=== PATIENT | female | born 1995 | race African-American/Black ===

== ENCOUNTER 2023-07-31 08:51 | Outpatient (AMB) | payer OTHER, SELFPAY ==
[2023-07-31 08:58] VITALS: BP 118/74; PULSE 77; O2SAT 100; BMI 24.1
--- NOTE | 2023-07-31 08:58 | A.OFFPC_ITS ---
Vital Signs 07/31/23 08:58 Height 5 ft 4.17 in Weight 141 lb 0.3 oz BMI 24.1 BP 118/74 Blood Pressure Location Lt brachial Position Sitting Pulse 77 Pulse Source Pulse Oximeter Temp Source Skin Pulse Oximetry (%) 100 Oxygen Delivery Method Room Air Intake Visit Reasons: [facility] Home Inspector Required: No Allergies No Known Allergies Allergy (Verified 07/31/23 09:18) Medication List - Last Reconciled 07/31/23 by MAURO Conti No Known Home Meds Tobacco use date assessed: 07/31/23 HPI HPI Comments History of Present Illness Details 28-year-old female presents today to [facility]. Past medical history significant for migraines.Patient presents today with her godmother who aids in interpretation, patient speaks Creole. Patient reports occasionally her right breast will get swollen and get a lump. Breast exam completed during this appointment no noted breast masses, tenderness. Patient denies any nipple discharge. Patient requesting referral to establish care with OBGYN, referral entered. Patient denies any chest pain, palpitations, shortness of breath. Patient reports did have syncopal episode in April seen at [facility]. Will request records. [facility] Medical History (Updated 07/31/23 @ 09:27 by MAURO Conti) Syncope Family History (Updated 07/31/23 @ 09:21 by MAURO Conti) Mother No problems noted. Father No problems noted. Social History (Updated 07/31/23 @ 09:22 by MAURO Conti) Household Members: Other Household Members Other:: god mother Housing: House Alcohol intake: never Patient Tobacco Use Status: Never used Tobacco service: No Current occupational status: unemployed Cognitive needs: No Hearing needs: No Vision needs: No Female Reproductive History Menstrual Date of last menstrual period: 07/21/23 control method: none Questionnaire PHQ-9 Over the last 2 weeks, how often have you been bothered by any of the following problems? 1. Little interest or pleasure in doing things: not at all 2. Feeling down, depressed, or hopeless: not at all 3. Trouble falling or staying asleep, or sleeping too much: not at all 4. Feeling tired or having little energy: not at all 5. Poor appetite or overeating: not at all 6. Feeling bad about yourself - or that you are a failure or have let yourself or your family down: not at all 7. Trouble concentrating on things, such as reading the newspaper or watching television: not at all 8. Moving or speaking so slowly that other people could have noticed. Or the opposite - being so fidgety or restless that you have been moving around a lot more than usual: not at all 9. Thoughts that you would be better off or of hurting yourself in some way: not at all Total score: 0 Depression Screening Interpretation: Negative Depression Screening Done: Yes Source: Developed by Drs. Jerzy Duran, Isa Krishna, Yovanny Herrera and colleagues, with an educational brad from [employer]. Thrive Questionnaire Date Thrive assessed: 07/31/23 I am a: Patient What is your living situation today?: I have a steady place to live Within the past 12 months, did the food you bought not last and you didn't have the money to get more?: Never true Within the past 12 months, did you worry whether your food would run out before you got money to buy more?: Never true Do you have trouble paying for medicines?: No Do you have trouble getting transportation to medical appointments?: No Do you have trouble paying your heating and electricity bill?: No Do you have trouble taking care of your child, family member or friend?: No Do you have trouble with day-to-day activities such as bathing, preparing meals, shopping, managing finances, etc.?: No Are you currently unemployed and looking for a job?: No Are you interested in more education?: No AUDIT C Alcohol Use Questionnaire (AUDIT-C) 1. How often do you have a drink containing alcohol?: Never 2. How many drinks containing alcohol do you have on a typical day when you are drinking?: 1 or 2 3. How often do you have six or more drinks on one occasion?: Never Total Score: 0 AIDE-7 AMB Questionnaire AIDE-7 Date AIDE - 7 assessed: 07/31/23 Feeling nervous, anxious, or on edge: 0 = Not at all Not being able to stop or control worryin = Not at all Worrying too much about different things: 0 = Not at all Trouble relaxin = Not at all Being so restless that it is hard to sit still: 0 = Not at all Becoming easily annoyed or irritable: 0 = Not at all Feeling afraid as if something awful might happen: 0 = Not at all Total AIDE-7 score (0-4 normal; 5-9 mild; 10-14 moderate; 15-21 severe): 0 Source: Developed by Drs. Jerzy Duran, Isa Krishna, Yovanny Herrera and colleagues, with an educational brad from [employer]. AIDE-7 Assessment Billing AIDE-7 Assessment Tool: AIDE-7 Assessment 88504 Review of Systems Const Denies chills, Denies fatigue, Denies fever(s) and Denies poor appetite Eyes Denies no additional complaints ENT Reports Normal hearing present Card Denies chest pain, Denies syncope, Denies rapid heart rate and Denies dyspnea Resp Denies cough and Denies dyspnea GI Denies change in stool character, Denies constipation, Denies diarrhea, Denies nausea and Denies vomiting Denies urinary frequency, Denies dysuria and Denies urinary urgency Neuro Reports Normal hearing present, Denies confusion and Denies syncope Psych Denies confusion Endo Denies fatigue Physical exam (Primary Care) Vital Signs: Last Vital Signs Pulse 77 07/31/23 08:58 BP 118/74 07/31/23 08:58 Pulse Ox 100 07/31/23 08:58 Oxygen Delivery Method Room Air 07/31/23 08:58 BMI result Body Mass Index 24.1 Tobacco/Smoking Status: Tobacco use Status Tobacco use date assessed 07/31/23 07/31/23 09:13 Patient Tobacco Use Status Never used Tobacco 07/31/23 09:22 PHQ-9: PHQ-9 Score PHQ-9: Total score 0 07/31/23 09:31 Depression Screening Interpretation: Negative Thrive Assessment: Date of Thrive Assessment Date Thrive assessed 07/31/23 07/31/23 09:13 Const General: No confusion Orientation/consciousness: No confusion HENMT Head: Yes normocephalic and Yes atraumatic Eyes Conjunctivae: conjunctivae normal Chest Chest palpation & inspection: normal inspection of the chest Resp Effort & Inspection: normal respiratory effort Auscultation: clear to auscultation bilaterally, no crackles, no rhonchi and no wheezes Cardio Rate: regular rate Rhythm: regular rhythm Heart sounds: S1 normal heart sound present and S2 normal heart sound present GI Inspection: Yes normal to inspection Neuro General: No confusion Cranial nerves: Yes Normal hearing present Extrem General: No edema Assessment and Plan Assessment & Plan (1) Syncope: Code(s): R55 - Syncope and collapse Plan: Move request records from [facility]. Complete blood work ordered. (2) Migraine: Code(s): G43.909 - Migraine, unspecified, not intractable, without status migrainosus Plan: Denies migraine headaches at this time. Plan Follow-up in 3 months for physical exam. Orders: Orders Influenza [id number] Immunization Today Z23 - Encounter for immunization Complete Blood Count Auto Diff Today R55 - Syncope and collapse Comprehensive Savage. Panel Fast Today R55 - Syncope and collapse TSH reflex Free T4 Today Z13.29 - Encounter for screening for other suspected endocrine disorder Lipid Panel Today Z13.220 - Encounter for screening for lipoid disorders Referrals [employer] Referral Z12.4 - Encounter for screening for malignant neoplasm of cervix Medications: New flu vacc [id number] 6mos up(PF) 0.5 mL IM ONCE 0.5 mL 0RF Z23 - Encounter for immunization Coding Level of Care Code New Pt Level 3 (78185) Diagnoses Syncope R55 Migraine G43.909 Additional Codes AIDE-7 Assessment Billing - AIDE-7 Assessment Tool: AIDE-7 Assessment 02681 ([id number])
== END 2023-07-31 09:43 | disposition home or self-care (01) ==
PROVIDERS: PCP Nurse Practitioner Family; Visit Provider Nurse Practitioner Family
DX: R55 Syncope and collapse (principal); G43.909 Migraine, unspecified, not intractable, without status migrainosus
CPT/HCPCS: 99203

== ENCOUNTER 2023-07-31 09:50 | Outpatient (REF) | payer OTHER, SELFPAY | END 2023-07-31 09:51 | disposition home or self-care (01) | LOC: HO.LAB 09:50 | PROVIDERS: PCP Nurse Practitioner Family; Visit Provider Nurse Practitioner Family | DX: R55 Syncope and collapse (principal); Z13.29 Encounter for screening for other suspected endocrine disorder; Z13.220 Encounter for screening for lipoid disorders | CPT/HCPCS: 36415; 80053; 80061; 84443; 85025 ==